=== PATIENT | male | born 1990 | race Caucasian/White ===

== ENCOUNTER 2018-10-03 14:01 | Emergency (ER) | payer SELFPAY ==
[~2018-10-03] VITALS: Ht 172.7 cm; Wt 88.2 kg
[2018-10-03 14:05] VITALS: BP 141/88
--- NOTE | 2018-10-03 14:07 | NUR ---
Patient ambulated to bed 2. RN evaluating patient at bedside.
--- NOTE | 2018-10-03 14:10 | NUR ---
Dr. Finn evaluating patient at bedside.
[2018-10-03] MEDS ORDERED: ALBUTEROL SULFATE/IPRATROPIU 3 ML SOL IH ONE (14:25)
[2018-10-03] MEDS ORDERED: cefTRIAXone 1,000 MG in LIDOCAINE 1% ***ER ONLY *** 2.1 ML IM ONE (14:25)
[2018-10-03] MEDS ORDERED: hydrOXYzine HCL 25 MG TAB PO ONE (14:25)
[2018-10-03] MEDS ORDERED: methylPREDNISolone SS 125 MG in WATER STERILE 2 ML IM ONE (14:25)
[2018-10-03] MEDS ORDERED: cefTRIAXone 1,000 MG VIAL ONE (14:40)
[2018-10-03] MEDS ORDERED: LIDOCAINE MPF 1% 5mL VIAL ONE (14:41)
--- NOTE | 2018-10-03 15:00 | NUR ---
PT C/O COUGH X2 WEEK. PT REPORTS DRY COUGH AND STATES THAT HE HEARS WHEEZING WHEN HE COUGHS. PT STATES HE HAD DIFFICULTY BREATHING LAST NIGHT AND ON HIS WAY TO THE HOSPITAL, BUT DENEIS DIFFICULTY BREATHING AT THIS TIME. + NAUSEA. -VOMITING OR FEVER. BREATH SOUNDS RHONCHI AT BASES BILAT, RESPIS E/U, DENIES CP. MEDHX:DENIES RX:NYQUIL, DAYQUIL
[2018-10-03 15:07] VITALS: BP 135/75
--- NOTE | 2018-10-03 15:07 | NUR ---
Patient discharged with v/s stable. Written and verbal after care instructions given and explained to parent/guardian. Parent/Guardian verbalized understanding of instructions. Ambulatory with steady gait. All questions addressed prior to discharge. ID band removed. Parent/Guardian advised to follow up with PMD. Rx of PROMETHAZINE AND AZYTHROMYCIN given. Parent/Guardian educated on indication of medication including possible reaction and side effects. Opportunity to ask questions provided and answered.
== END 2018-10-03 15:07 | disposition home or self-care (01) ==
LOC: MED 14:01
DX: J06.9 Acute upper respiratory infection, unspecified (principal)
CPT/HCPCS: 94640; 96372; 99283; J0696; J2001; J2930; J7620

== ENCOUNTER 2018-10-15 18:48 | Emergency (ER) | payer SELFPAY ==
[~2018-10-15] VITALS: Ht 172.7 cm; Wt 88.0 kg
[2018-10-15 19:02] VITALS: BP 158/92
--- NOTE | 2018-10-15 19:06 | NUR ---
PT AMBULATED TO BED 6.
--- NOTE | 2018-10-15 19:15 | NUR ---
28/M PRESENTS TO ED WITH FAMILY/FRIEND, C/O INTERMITTENT FEELING OF SOB, WORSENED AT NIGHT. PT HAS BEEN HAVING A PRODUCTIVE COUGH. PT LAST SEEN 1.5 WEEK AGO, FINISHED RX ABX AND PROMETHAZINE. DENIES FEVER, CP, N/V. PT AOX4, SKIN NORMAL WARM AND DRY, RR EVEN AND UNLABORED. LUNG SOUNDS CLEAR BL. DENIES MED HX
--- NOTE | 2018-10-15 20:03 | NUR ---
DR MCGREGOR AT BEDSIDE
[2018-10-15 20:10] VITALS: BP 132/82
== END 2018-10-15 20:10 | disposition home or self-care (01) ==
LOC: MED 18:48
DX: R05 Cough (principal); R06.02 Shortness of breath
CPT/HCPCS: 71045; 99283

== ENCOUNTER 2019-01-30 21:25 | Emergency (ER) | payer MEDICAID ==
[~2019-01-30] VITALS: Ht 172.7 cm; Wt 99.8 kg
[2019-01-30 21:33] VITALS: BP 133/73
[2019-01-31 00:16] VITALS: BP 128/74
== END 2019-01-31 00:16 | disposition home or self-care (01) ==
LOC: MED 21:25
DX: S81.831A Puncture wound without foreign body, right lower leg, initial encounter (principal); W22.8XXA Striking against or struck by other objects, initial encounter; Y93.89 Activity, other specified; Y99.8 Other external cause status; Y92.89 Other specified places as the place of occurrence of the external cause
CPT/HCPCS: 90471; 90715; 99283

== ENCOUNTER 2019-07-05 21:45 | Emergency (ER) | payer MEDICAID ==
[~2019-07-05] VITALS: Ht 172.7 cm; Wt 104.3 kg
[2019-07-05 21:59] VITALS: BP 127/86
--- NOTE | 2019-07-05 22:04 | NUR ---
PT AMBULATED TO BED #2
[2019-07-05] MEDS ORDERED: ACETAMINOPHEN EXTRA STRENGTH 500 MG TAB PO ONE (22:05)
--- NOTE | 2019-07-05 22:06 | NUR ---
CAME IN WITH C/O FEVER, COUGH, H/A, BODYACHES, FOR A MONTH . HE TOOK MOTRIN AT 1400HOURS. PAIN LEVEL 6/10
--- NOTE | 2019-07-05 23:00 | NUR ---
SEEN AND EXAMINED BY ERMD AT BEDSIDE WITH ORDERS AND CARRIED OUT.
[2019-07-05 23:25] VITALS: BP 122/78
--- NOTE | 2019-07-05 23:25 | NUR ---
Patient discharged with v/s stable. Written and verbal after care instructions given and explained BY DR. DOUGLAS. Patient alert, oriented and verbalized understanding of instructions. Ambulatory with steady gait. All questions addressed prior to discharge. ID band removed. Patient advised to follow up with PMD. Rx of AUGMENTIN 875 MG, TESSALON PERLES 200MG given. Patient educated on indication of medication including possible reaction and side effects. Opportunity to ask questions provided and answered.
== END 2019-07-05 23:25 | disposition home or self-care (01) ==
LOC: MED 21:45
DX: J20.9 Acute bronchitis, unspecified (principal)
CPT/HCPCS: 99283

== ENCOUNTER 2021-09-21 22:32 | Emergency (ER) | payer MEDICAID ==
[~2021-09-21] VITALS: Ht 172.7 cm; Wt 114.5 kg
[2021-09-21 22:44] VITALS: BP 134/71
--- NOTE | 2021-09-22 00:12 | NUR ---
called to bed 08. no answer in lobby or outside.
[2021-09-22] MEDS ORDERED: CYCL-711 PO (14:48)
[2021-09-22] MEDS ORDERED: NAPR-54 PO (14:48)
== END 2021-09-22 00:24 | disposition left against medical advice (07) ==
LOC: MED 22:32
DX: R51.9 Headache, unspecified (principal); Z53.21 Procedure and treatment not carried out due to patient leaving prior to being seen by health care provider; W22.8XXA Striking against or struck by other objects, initial encounter; Y92.89 Other specified places as the place of occurrence of the external cause; Y93.89 Activity, other specified; Y99.0 Civilian activity done for income or pay

== ENCOUNTER 2021-09-22 13:19 | Emergency (ER) | payer OTHER, MEDICAID ==
[~2021-09-22] VITALS: Ht 175.3 cm; Wt 113.9 kg
[2021-09-22 13:23] VITALS: BP 145/77
--- NOTE | 2021-09-22 13:30 | NUR ---
PT AMBULATED TO BEDSIDE
[2021-09-22] MEDS ORDERED: KETOROLAC 30 MG/ML VIAL IM ONE (13:50)
--- NOTE | 2021-09-22 14:16 | NUR ---
PT TAKEN TO X-RAY
--- NOTE | 2021-09-22 14:27 | NUR ---
31Y MALE BIB SELF DUE TO HEAD INJURY THAT OCCURED YESTERDAY. 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 PT DENIES ANY LOC, BLURRED VISION, N/V. PT STATED HE IS JUST EXPERINCING A HEADACHE. PT STATES HIS PAIN IS 8/10 IN HIS NECK AND UPPER BACK. THERE IS NO VISIBLE TAUMA TO THE AREA. PT IS A&OX4 WITH NO COMPLAINT OF PAIN ANYWHERE ELSE. PT RESTING IN BED PMH: DENIES NKA
[2021-09-22] MEDS ORDERED: CYCL-711 PO (14:48)
[2021-09-22] MEDS ORDERED: NAPR-54 PO (14:48)
[2021-09-22 14:59] VITALS: BP 145/77
--- NOTE | 2021-09-22 15:00 | NUR ---
Patient discharged with v/s stable. Written and verbal after care instructions given and explained. Patient alert, oriented and verbalized understanding of instructions. Ambulatory with steady gait. All questions addressed prior to discharge. ID band removed. Patient advised to follow up with PMD. Rx of FLEXERIL AND NAPROXEN given. Patient educated on indication of medication including possible reaction and side effects. Opportunity to ask questions provided and answered.
== END 2021-09-22 17:05 | disposition home or self-care (01) ==
LOC: MED 13:19
DX: S16.1XXA Strain of muscle, fascia and tendon at neck level, initial encounter (principal); S09.90XA Unspecified injury of head, initial encounter; Z79.899 Other long term (current) drug therapy; Z79.1 Long term (current) use of non-steroidal anti-inflammatories (NSAID); W20.8XXA Other cause of strike by thrown, projected or falling object, initial encounter; Y93.89 Activity, other specified; Y92.89 Other specified places as the place of occurrence of the external cause; Y99.0 Civilian activity done for income or pay
CPT/HCPCS: 72050; 96372; 99283; J1885

== ENCOUNTER 2022-10-26 11:06 | Emergency (ER) | payer MEDICAID, OTHER ==
[~2022-10-26] VITALS: Ht 175.3 cm; Wt 117.9 kg
[~2022-10-26 11:06] MED LIST: CYCL-711 PO; NAPR-54 PO
[2022-10-26 11:11] VITALS: BP 162/90
[2022-10-26] MEDS ORDERED: ACETAMINOPHEN 325 MG TAB PO ONE (11:15)
--- NOTE | 2022-10-26 13:28 | NUR ---
patient presents to er c/o diarrhea, no abdominal pain, denies nausea vomiting.
[2022-10-26 13:44] LABS: BASOPHILS % (AUTO) 0.2 % (0.0-2.0); HEMATOCRIT 45.6 % (36-52); HEMOGLOBIN 15.7 g/dL (12.0-18.0); LYMPHOCYTES # (AUTO) 1.3 K/uL (2.0-11.5); LYMPHOCYTES % (AUTO) 8.1 % (20.5-51.1); MEAN CORPUSCULAR HEMOGLOBIN 29 pg (27-31); MEAN CORPUSCULAR HGB CONC 34 g/dL (33-37); MEAN CORPUSCULAR VOLUME 83.5 fL (80-94); MONOCYTES # (AUTO) 0.6 K/uL (0.8-1.0); MONOCYTES % (AUTO) 3.7 % (1.7-9.3); NEUTROPHILS # (AUTO) 14.4 K/uL (1.8-7.7); PLATELET COUNT (AUTO) 196 K/uL (140-450); RED BLOOD CELL COUNT(AUTO) 5.46 MIL/uL (4.20-6.10); WHITE BLOOD COUNT (AUTO) 16.3 K/uL (4.8-10.8)
[2022-10-26] MEDS ORDERED: LOPERAMIDE 2 MG CAP PO ONE (13:55)
[2022-10-26] MEDS ORDERED: DICYCLOMINE HCL LIQUID 20 MG, ALUMINUM HYD/MAG/SIMETHICONE 30 ML, LIDOCAINE VISCOUS 2% ... PO ONE ×3 (13:55)
[2022-10-26 13:57] LABS: ALBUMIN 4.1 g/dL (3.4-5.0); ANION GAP 15.3 (8-16); CARBON DIOXIDE 26.4 mmol/L (21-32); CREATININE 1.2 mg/dL (0.6-1.3); POTASSIUM 3.7 mmol/L (3.5-5.1); TOTAL BILIRUBIN 1.1 mg/dL (0.0-1.0)
[2022-10-26] MEDS ORDERED: LOPE1TAB14 PO (13:58)
[2022-10-26] MEDS ORDERED: CIPR500T4 PO (13:58)
[2022-10-26] MEDS ORDERED: BISM262C10 PO (13:58)
[2022-10-26] MEDS ORDERED: DICYCLOMINE HCL LIQUID 10 MG/5 ML UDC ONE (14:20)
[2022-10-26] MEDS ORDERED: ALUMINUM HYD/MAG/SIMETHICONE 30 ML UDC ONE (14:20)
[2022-10-26 14:30] VITALS: BP 140/90
--- NOTE | 2022-10-26 14:32 | NUR ---
patient condition stable no diarrhea, d/c home with instructions after care reviewed understood left er ambulatory with steady gait.
== END 2022-10-26 14:30 | disposition home or self-care (01) ==
LOC: MED 11:06
DX: A08.4 Viral intestinal infection, unspecified (principal); Z20.822 Contact with and (suspected) exposure to COVID-19; R74.01 Elevation of levels of liver transaminase levels; E86.0 Dehydration; Z79.899 Other long term (current) drug therapy
CPT/HCPCS: 36415; 80053; 85025; 99284